=== PATIENT | female | born 1965 | race Caucasian/White ===

== ENCOUNTER 2016-09-11 20:16 | Emergency (ER) | payer BC ==
[~2016-09-11 20:16] MED LIST: CATAPRES0.1 MG PO; CHILDRENS CHEWA81 MG PO; HCTZ25 MG PO; KLONOPIN1 MG PO; MIRAPEX0.5 MG PO; MOBIC15 MG PO; NEURONTIN300 MG PO; NITROQUICK0.4 MG SL; PRILOSEC20 MG PO
[2016-09-11 21:03] LABS: BASO # 0.1 10_X3_uL (0.0-0.1); BASO % 0.6 % (0.1-1.2); EOS # 0.2 10_X3_uL (0.0-0.4); GRAN # 6.4 10_X3_uL (1.6-6.1); GRAN % 63.9 % (34.0-71.1); HEMATOCRIT 42.5 % (34-45); HEMOGLOBIN 14.2 g/dL (11.2-15.7); LYMPH # 2.7 10_X3_uL (1.2-3.7); MEAN CORPUSCULAR HEMOGLOBIN 28.9 pg (27.0-33.0); MEAN CORPUSCULAR HGB CONC 33.4 g/dL (32.0-36.0); MEAN CORPUSCULAR VOLUME 86.6 fL (79-95); MEAN PLATELET VOLUME 9.3 fl (7.5-11.5); MONO # 0.7 10_X3_uL (0.2-0.9); MONO % 6.5 % (4.7-12.5); PLATELET COUNT 270 x10_3/uL (182-369); RED BLOOD COUNT 4.91 x10_6/uL (3.9-5.2); RED CELL DISTRIBUTION WIDTH 13.4 % (11.7-14.4)
[2016-09-11 21:12] LABS: URINE BACTERIA 1+ (NONE SEEN); URINE BILIRUBIN NEGATIVE (NEGATIVE); URINE BLOOD 3+ (NEGATIVE); URINE GLUCOSE (UA) NORMAL (NORMAL); URINE KETONE NEGATIVE (NEGATIVE); URINE LEUKOCYTE ESTERASE TRACE (NEGATIVE); URINE NITRATE NEGATIVE (NEGATIVE); URINE PROTEIN 1+ (NEGATIVE); URINE WBC 0-5 /[HPF] (0-5)
[2016-09-11 21:17] LABS: ALBUMIN 4.1 gm/dL (3.4-5.0); ALKALINE PHOSPHATASE 87 U/L (50-136); ALT/SGPT 17 U/L (3.5-33.9); AMYLASE 48 U/L (15.62-74.58); AST/SGOT 15 U/L (7.04-26.96); BILIRUBIN,TOTAL 0.18 mg/dL (0.0-1.0); BLOOD UREA NITROGEN 19 mg/dL (7-18); CARBON DIOXIDE 25 mmol/L (21-32); CREATININE 0.7 mg/dL (0.6-1.3); GLUCOSE,RANDOM 127 mg/dL (70-99); LIPASE 33 U/L (6.75-60.75); SODIUM 139 mmol/L (136-145); TOTAL PROTEIN 7.1 gm/dL (6.4-8.2)
== END 2016-09-11 22:14 | disposition home or self-care (01) ==
LOC: ER 20:16
PROVIDERS: Emergency Medicine
DX: R10.11 Right upper quadrant pain (principal); Z87.442 Personal history of urinary calculi; K21.9 Gastro-esophageal reflux disease without esophagitis; F17.210 Nicotine dependence, cigarettes, uncomplicated; Z82.49 Family history of ischemic heart disease and other diseases of the circulatory system; R11.0 Nausea; M54.9 Dorsalgia, unspecified; Z79.899 Other long term (current) drug therapy; Z88.8 Allergy status to other drugs, medicaments and biological substances
CPT/HCPCS: 36415; 74150; 80053; 81001; 82150; 83690; 85025; 96361; 96374; 96375; 99070; 99284-25